=== PATIENT | female | born 1955 | race Caucasian/White ===

== ENCOUNTER 2020-08-10 06:14 | Inpatient (IN) ==
[2020-08-10] MEDS ORDERED: diphenhydrAMINE CAP 25 MG CAPSULE PO ONE (06:48)
[2020-08-10] MEDS ORDERED: DIAZEPAM 5 MG TABLET PO ONE (06:48)
[2020-08-10] MEDS ORDERED: LIDOCAINE 1% 20 ML VIAL ONE (06:52)
[2020-08-10] MEDS ORDERED: HEPARIN/NACL 0.9% 2 UNITS/ML 1,000 ML IV ONE (06:52)
[2020-08-10] MEDS ORDERED: DIAZEPAM 5 MG TABLET ONE (07:01)
[2020-08-10] MEDS ORDERED: diphenhydrAMINE CAP 25 MG CAPSULE ONE (07:01)
[2020-08-10] MEDS: SODIUM CHLORIDE 0.9% 1,000 ML IV SCH ×2 (07:03→15:35)
[2020-08-10] MEDS ORDERED: fentaNYL 100 MCG/2 ML VIAL ONE (07:15)
[2020-08-10] MEDS ORDERED: MIDAZOLAM 2 MG/2 ML VIAL ONE (07:15)
[2020-08-10 07:27] LABS: Calcium 9.5 MG/DL (8.5-10.1); Osmolality,Calculated 280.5 MOS/KG (273-304)
[2020-08-10] MEDS ORDERED: NITROGLYCERIN DRIP 50 MG/250 ML BOTTLE IV ONE (07:33)
[2020-08-10 07:43] LABS: Basophils # 0.1 10*3/uL (0.0-0.2); Basophils % 1.2 % (0.0-0.8); Eosinophils # 0.3 10*3/uL (0.0-0.87); Eosinophils % 4.8 % (0.00-10.9); Hematocrit 36.5 VOL% (35.7-47.0); Hemoglobin 12.2 GM/DL (12.0-16.0); Immature Granulocytes % 0.6 %; Immature Granulocytes Absolute 0.04 #; Lymphocytes # 2.1 10*3/uL (1.4-4.0); Lymphocytes % 30.7 % (21.3-54.2); Mean Corpuscular HGB Conc 33.4 GM/DL (32-36); Mean Corpuscular Volume 80.6 FL (87-102); Mean Platelet Volume 10.6 FL (9.6-12.0); Monocytes % 11.7 % (1.7-12.7); Platelet Count 263 T/CUMM (130-400); Red Blood Count 4.53 MC/CUMM (3.8-5.5); White Blood Count 6.7 T/CUMM (4-12)
[2020-08-10] MEDS ORDERED: NITROGLYCERIN SL 0.4 MG TABLET SL PRN (08:00)
[2020-08-10] MEDS ORDERED: ACETAMINOPHEN 325 MG TABLET PO PRN (08:00)
[2020-08-10] MEDS ORDERED: DEXTROSE 50% 25 GM/50 ML VIAL IV PRN ×2 (08:00→09:27)
[2020-08-10] MEDS ORDERED: ZALEPLON 5 MG CAPSULE PO PRN (08:00)
[2020-08-10] MEDS ORDERED: GLUCAGON 1 MG VIAL IM PRN ×2 (08:00→09:27)
[2020-08-10] MEDS ORDERED: ONDANSETRON 4 MG/2 ML VIAL IV PRN (08:00)
[2020-08-10] MEDS ORDERED: hydrALAZINE 20 MG/1 ML VIAL IV PRN (08:05)
[2020-08-10] MEDS: CITALOPRAM 20 MG TABLET PO SCH (09:34)
[2020-08-10] MEDS: ROSUVASTATIN 20 MG TABLET PO SCH (09:35)
[2020-08-10] MEDS: CHLORTHALIDONE 25 MG TABLET PO SCH (09:35)
[2020-08-10] MEDS: ISOSORBIDE MONONITRATE 60 MG TABLET PO SCH (09:35)
[2020-08-10] MEDS: FAMOTIDINE 20 MG TABLET PO SCH ×2 (09:36→21:57)
[2020-08-10] MEDS: gemfibroziL 600 MG TABLET PO SCH ×2 (09:36→21:56)
[2020-08-10] MEDS: EZETIMIBE 10 MG TABLET PO SCH (09:37)
[2020-08-10] MEDS: METOPROLOL SUCCINATE XL 50 MG TABLET PO SCH (09:37)
[2020-08-10] MEDS: INSULIN REGULAR 100 UNIT/ML SUBCUT SCH ×3 (12:30→22:18)
[2020-08-10] MEDS ORDERED: ACARBOSE 50 MG PO SCH (17:00)
[2020-08-10] MEDS: amLODIPine 10 MG TABLET PO SCH (21:56)
[2020-08-10] MEDS: ASPIRIN EC 81 MG TABLET PO SCH (21:57)
[2020-08-11] MEDS: SODIUM CHLORIDE 0.9% 1,000 ML IV SCH ×4 (00:30→22:23)
[2020-08-11 06:03] LABS: Basophils # 0.1 10*3/uL (0.0-0.2); Basophils % 1.1 % (0.0-0.8); Eosinophils # 0.4 10*3/uL (0.0-0.87); Eosinophils % 5.4 % (0.00-10.9); Hematocrit 40.8 VOL% (35.7-47.0); Hemoglobin 13.4 GM/DL (12.0-16.0); Immature Granulocytes % 0.4 %; Immature Granulocytes Absolute 0.03 #; Lymphocytes # 2.3 10*3/uL (1.4-4.0); Lymphocytes % 31.6 % (21.3-54.2); Mean Corpuscular HGB Conc 32.8 GM/DL (32-36); Mean Corpuscular Volume 81.3 FL (87-102); Mean Platelet Volume 10.6 FL (9.6-12.0); Monocytes % 10.5 % (1.7-12.7); Platelet Count 257 T/CUMM (130-400); Red Blood Count 5.02 MC/CUMM (3.8-5.5); Red Cell Distribution Width 13.9 % (9.3-17.3); White Blood Count 7.4 T/CUMM (4-12)
[2020-08-11 06:18] LABS: Calcium 9.5 MG/DL (8.5-10.1); Osmolality,Calculated 281.5 MOS/KG (273-304)
[2020-08-11 07:28] LABS: Calcium 9.6 MG/DL (8.5-10.1); Osmolality,Calculated 281.5 MOS/KG (273-304); Risk Ratio 4.73; VLDL CHOLESTEROL 37.2 MG/DL
[2020-08-11 08:07] LABS: INR 1.1; PT Patient Result 11.7 SECS (9.8-11.9)
[2020-08-11] MEDS: INSULIN REGULAR 100 UNIT/ML SUBCUT SCH ×4 (09:27→20:57)
[2020-08-11] MEDS: FAMOTIDINE 20 MG TABLET PO SCH ×2 (09:29→20:55)
[2020-08-11] MEDS: ROSUVASTATIN 20 MG TABLET PO SCH (09:29)
[2020-08-11] MEDS: ISOSORBIDE MONONITRATE 60 MG TABLET PO SCH (09:29)
[2020-08-11] MEDS: gemfibroziL 600 MG TABLET PO SCH ×2 (09:29→20:55)
[2020-08-11] MEDS: CITALOPRAM 20 MG TABLET PO SCH (09:29)
[2020-08-11] MEDS: METOPROLOL SUCCINATE XL 50 MG TABLET PO SCH (09:29)
[2020-08-11] MEDS: CHLORTHALIDONE 25 MG TABLET PO SCH (09:30)
[2020-08-11] MEDS: EZETIMIBE 10 MG TABLET PO SCH (09:30)
[2020-08-11] MEDS: ASCORBIC ACID 500 MG TABLET PO SCH ×2 (11:33→20:55)
[2020-08-11] MEDS: ENOXAPARIN 40 MG/0.4 ML SYRINGE SUBCUT SCH (11:33)
[2020-08-11] MEDS: ASPIRIN EC 81 MG TABLET PO SCH (20:55)
[2020-08-11] MEDS: amLODIPine 10 MG TABLET PO SCH (20:55)
[2020-08-12 06:27] LABS: Basophils # 0.1 10*3/uL (0.0-0.2); Eosinophils # 0.4 10*3/uL (0.0-0.87); Eosinophils % 5.8 % (0.00-10.9); Hematocrit 37.2 VOL% (35.7-47.0); Hemoglobin 12.1 GM/DL (12.0-16.0); Immature Granulocytes % 0.9 %; Immature Granulocytes Absolute 0.06 #; Lymphocytes # 1.9 10*3/uL (1.4-4.0); Lymphocytes % 27.5 % (21.3-54.2); Mean Corpuscular HGB Conc 32.5 GM/DL (32-36); Mean Corpuscular Volume 80.9 FL (87-102); Mean Platelet Volume 10.7 FL (9.6-12.0); Monocytes % 12.1 % (1.7-12.7); Neutrophils % 52.7 % (38.7-73.9); Platelet Count 259 T/CUMM (130-400); Red Cell Distribution Width 13.6 % (9.3-17.3); White Blood Count 7.1 T/CUMM (4-12)
[2020-08-12 06:40] LABS: Calcium 9.3 MG/DL (8.5-10.1); Osmolality,Calculated 282.8 MOS/KG (273-304)
[2020-08-12] MEDS: INSULIN REGULAR 100 UNIT/ML SUBCUT SCH ×4 (09:40→21:38)
[2020-08-12] MEDS: SODIUM CHLORIDE 0.9% 1,000 ML IV SCH ×2 (09:40→16:15)
[2020-08-12] MEDS: ASCORBIC ACID 500 MG TABLET PO SCH ×2 (09:41→21:39)
[2020-08-12] MEDS: FAMOTIDINE 20 MG TABLET PO SCH ×2 (09:41→21:39)
[2020-08-12] MEDS: METOPROLOL SUCCINATE XL 50 MG TABLET PO SCH (09:41)
[2020-08-12] MEDS: gemfibroziL 600 MG TABLET PO SCH ×2 (09:41→21:39)
[2020-08-12] MEDS: ISOSORBIDE MONONITRATE 60 MG TABLET PO SCH (09:41)
[2020-08-12] MEDS: CITALOPRAM 20 MG TABLET PO SCH (09:41)
[2020-08-12] MEDS: ROSUVASTATIN 20 MG TABLET PO SCH (09:42)
[2020-08-12] MEDS: EZETIMIBE 10 MG TABLET PO SCH (09:42)
[2020-08-12] MEDS: CHLORTHALIDONE 25 MG TABLET PO SCH (09:45)
[2020-08-12] MEDS: ENOXAPARIN 40 MG/0.4 ML SYRINGE SUBCUT SCH (11:55)
[2020-08-12] MEDS: amLODIPine 10 MG TABLET PO SCH (21:39)
[2020-08-12] MEDS: metFORMIN 500 MG TABLET PO SCH (21:39)
[2020-08-12] MEDS: ASPIRIN EC 81 MG TABLET PO SCH (21:39)
[2020-08-13 06:11] LABS: Basophils # 0.1 10*3/uL (0.0-0.2); Basophils % 1.1 % (0.0-0.8); Eosinophils # 0.4 10*3/uL (0.0-0.87); Eosinophils % 5.2 % (0.00-10.9); Hemoglobin 13.4 GM/DL (12.0-16.0); Immature Granulocytes % 0.8 %; Immature Granulocytes Absolute 0.07 #; Lymphocytes # 2.3 10*3/uL (1.4-4.0); Lymphocytes % 27.8 % (21.3-54.2); Mean Corpuscular HGB Conc 33.5 GM/DL (32-36); Mean Platelet Volume 10.7 FL (9.6-12.0); Monocytes % 9.7 % (1.7-12.7); Neutrophils % 55.4 % (38.7-73.9); Platelet Count 266 T/CUMM (130-400); Red Cell Distribution Width 13.4 % (9.3-17.3); White Blood Count 8.2 T/CUMM (4-12)
[2020-08-13 06:30] LABS: Albumin 3.5 G/DL (3.4-5.0); Bilirubin,Total 0.8 MG/DL (0.2-1.0); Calcium 9.5 MG/DL (8.5-10.1); Osmolality,Calculated 276.1 MOS/KG (273-304); Total Protein 7.5 G/DL (6.4-8.3)
[2020-08-13] MEDS: SODIUM CHLORIDE 0.9% 1,000 ML IV SCH ×3 (07:15→14:15)
[2020-08-13] MEDS ORDERED: VANCOMYCIN 1,000 MG VIAL ONE (07:56)
[2020-08-13] MEDS ORDERED: VANCOMYCIN 500 MG VIAL ONE (07:56)
[2020-08-13] MEDS ORDERED: PAPAVERINE 60 MG/2 ML VIAL ONE (07:56)
[2020-08-13 08:29] LABS: Allen Test Positive; Pt O2 Delivery Device Room Air
[2020-08-13 08:32] LABS: ABG HCO3 25.2 MMOL/L (20-26); ABG Oxygen Saturation 94.2 % (95-100); ABG PCO2 40.8 MM HG (35-48); ABG PH 7.407 (7.35-7.45); ABG PO2 71.9 MM HG (80-95); ABG TCO2 22.5 MMOL/L (23-27)
[2020-08-13] MEDS ORDERED: SODIUM CHLORIDE 0.9% 1,000 ML IV SCH (09:30)
[2020-08-13] MEDS: INSULIN REGULAR 100 UNIT/ML SUBCUT SCH ×4 (09:41→21:02)
[2020-08-13] MEDS: EZETIMIBE 10 MG TABLET PO SCH (10:08)
[2020-08-13] MEDS: ROSUVASTATIN 20 MG TABLET PO SCH (10:12)
[2020-08-13] MEDS: metFORMIN 500 MG TABLET PO SCH ×2 (10:12→21:01)
[2020-08-13] MEDS: METOPROLOL SUCCINATE XL 50 MG TABLET PO SCH (10:13)
[2020-08-13] MEDS: CHLORTHALIDONE 25 MG TABLET PO SCH (10:15)
[2020-08-13] MEDS: gemfibroziL 600 MG TABLET PO SCH ×2 (10:17→21:01)
[2020-08-13] MEDS: CHLORHEXIDINE 4% SOLN 118 ML BOTTLE TOP SCH ×3 (10:19→21:02)
[2020-08-13] MEDS: CITALOPRAM 20 MG TABLET PO SCH (10:19)
[2020-08-13] MEDS: ISOSORBIDE MONONITRATE 60 MG TABLET PO SCH (10:19)
[2020-08-13] MEDS: FAMOTIDINE 20 MG TABLET PO SCH ×2 (10:23→21:01)
[2020-08-13] MEDS: ASCORBIC ACID 500 MG TABLET PO SCH ×2 (10:24→21:01)
[2020-08-13] MEDS: CHLORHEXIDINE 0.12% ORAL RINSE 60 ML BOTTLE SWISH/SPIT SCH ×2 (10:24→21:02)
[2020-08-13] MEDS: ASPIRIN EC 81 MG TABLET PO SCH (21:00)
[2020-08-13] MEDS: amLODIPine 10 MG TABLET PO SCH (21:01)
[2020-08-14] MEDS ORDERED: CEFUROXIME INJ 1,500 MG in SYRINGE 1 EACH IV ONE (05:00)
[2020-08-14] MEDS ORDERED: FAMOTIDINE 20 MG TABLET PO ONE (05:30)
[2020-08-14] MEDS ORDERED: DIAZEPAM 5 MG TABLET PO ONE (05:30)
[2020-08-14] MEDS: METOPROLOL SUCCINATE XL 50 MG TABLET PO SCH ×2 (05:42→08:28)
[2020-08-14] MEDS: SODIUM CHLORIDE 0.9% 1,000 ML IV SCH ×2 (05:55→07:38)
[2020-08-14 07:34] LABS: ABG HCO3 23.6 MMOL/L (20-26); ABG Oxygen Saturation 99.5 % (95-100); ABG PCO2 38.3 MM HG (35-48); ABG PH 7.397 (7.35-7.45); ABG TCO2 20.7 MMOL/L (23-27); Glucose Heart Surgery 160 MG/DL (74-106); Hematocrit Heart Surgery 38.2 PERCENT (37-47); Hemoglobin Heart Surgery 12.4 G/DL (12.0-16.0); Ionized Calcium Arterial 1.27 MMOL/L (1.21-1.46); PCO2 Patient Temp Arterial 38.3 MMHG; PH Patient Temp Arterial 7.397; Patient Temperature 37 CELCIUS; Potassium Heart/CVR 4.2 MMOL/L (3.5-5.1); Sodium Heart/CVR 137 MMOL/L (135-145)
[2020-08-14] MEDS: INSULIN REGULAR 100 UNIT/ML SUBCUT SCH (07:38)
[2020-08-14] MEDS ORDERED: PHENYLEPHRINE DRIP 40 MG/250 ML PREMIX IV ONE (07:40)
[2020-08-14] MEDS ORDERED: SODIUM BICARBONATE 50 MEQ/50 ML VIAL IV ONE ×2 (07:40→10:39)
[2020-08-14] MEDS ORDERED: POTASSIUM CHLORIDE RIDER 100 ML IV ONE (07:40)
[2020-08-14] MEDS ORDERED: NITROPRUSSIDE 50 MG/2 ML VIAL ONE (07:40)
[2020-08-14] MEDS ORDERED: CALCIUM CHLORIDE 1,000 MG/10 ML SYRINGE IV ONE (07:41)
[2020-08-14] MEDS ORDERED: EPINEPHrine 1 MG/10 ML SYRINGE ONE (07:41)
[2020-08-14 08:01] LABS: Bacteria,Urine Moderate /HPF (Few); Bilirubin,Urine Negative (Negative); Blood, Urine Negative (Negative); Glucose,Urine (UA) Negative (Negative); Ketones,Urine Negative (Negative); Nitrite,Urine Negative (Negative); Protein,Urine Negative; RBC,Urine 1 /HPF (0-4); Squamous Epithelial Cell,Urine Occasional /HPF (0-10); Urine Appearance CLEAR (Clear); Urine Color Yellow (Yellow); Urine Specific Gravity 1.012 (1.001-1.035); Urine Urobilinogen < 2.0 EU/DL (0.2-1.0); WBC,Urine 2 /HPF (0-6)
[2020-08-14] MEDS: FAMOTIDINE 20 MG TABLET PO SCH (08:28)
[2020-08-14] MEDS: CITALOPRAM 20 MG TABLET PO SCH (08:28)
[2020-08-14] MEDS: ISOSORBIDE MONONITRATE 60 MG TABLET PO SCH (08:28)
[2020-08-14] MEDS: CHLORTHALIDONE 25 MG TABLET PO SCH (08:28)
[2020-08-14] MEDS: metFORMIN 500 MG TABLET PO SCH (08:28)
[2020-08-14] MEDS: gemfibroziL 600 MG TABLET PO SCH (08:28)
[2020-08-14] MEDS: ROSUVASTATIN 20 MG TABLET PO SCH (08:28)
[2020-08-14] MEDS: CHLORHEXIDINE 0.12% ORAL RINSE 60 ML BOTTLE SWISH/SPIT SCH ×2 (08:28→21:04)
[2020-08-14] MEDS: ASCORBIC ACID 500 MG TABLET PO SCH (08:29)
[2020-08-14] MEDS: EZETIMIBE 10 MG TABLET PO SCH (08:29)
[2020-08-14 09:19] LABS: Hematocrit Heart Surgery 25.1 PERCENT (37-47); Hemoglobin Heart Surgery 8.1 G/DL (12.0-16.0); PCO2 Patient Temp Venous 35.3 MM HG; PH Patient Temp Venous 7.453; PO2 Patient Temp Venous 34.8 MM HG; Potassium Heart/CVR 5.2 MMOL/L (3.5-5.1); VBG PCO2 38.8 MMHG (41-51); VBG PH 7.423
[2020-08-14 10:00] LABS: Hematocrit Heart Surgery 28.5 PERCENT (37-47); Hemoglobin Heart Surgery 9.2 G/DL (12.0-16.0); PCO2 Patient Temp Venous 33.2 MM HG; PH Patient Temp Venous 7.457; PO2 Patient Temp Venous 34.9 MM HG; Potassium Heart/CVR 4.4 MMOL/L (3.5-5.1); VBG Base Excess 0.1 MEQ/L (0-4); VBG HCO3 24.2 MEQ/L (24-28); VBG Oxygen Saturation 77.8 %; VBG PCO2 38.4 MMHG (41-51); VBG PH 7.413
[2020-08-14] MEDS ORDERED: THROMBIN TOPICAL (RECOMBINANT) 5,000 UNIT VIAL TOP ONE (10:27)
[2020-08-14] MEDS ORDERED: MAGNESIUM SULFATE 5 GM/10 ML VIAL IV ONE (10:39)
[2020-08-14] MEDS ORDERED: PROTAMINE SULFATE 250 MG/25 ML VIAL IV ONE (10:39)
[2020-08-14] MEDS ORDERED: HEPARIN 10,000 UNIT/10 ML VIAL ONE (10:39)
[2020-08-14] MEDS ORDERED: ALBUMIN 25% 25 GM/100 ML VIAL IV ONE (10:39)
[2020-08-14] MEDS ORDERED: LIDOCAINE 2% 5 ML VIAL ONE ×2 (10:39→11:56)
[2020-08-14] MEDS ORDERED: MANNITOL 100 GM/500 ML BAG IV ONE (10:39)
[2020-08-14] MEDS ORDERED: DEXTROSE 5% KCL 20 MEQ 20 MEQ/1,000 ML BAG IV ONE (10:39)
[2020-08-14] MEDS ORDERED: FUROSEMIDE 20 MG/2 ML VIAL ONE ×2 (10:40→10:44)
[2020-08-14] MEDS ORDERED: PROTAMINE SULFATE 50 MG/5 ML VIAL IV ONE (10:40)
[2020-08-14] MEDS ORDERED: methylPREDNISolone SOD SUC 1,000 MG/8 ML VIAL ONE (10:40)
[2020-08-14 10:57] LABS: ABG Base Excess -1.6 MMOL/L (-2.5-2.5); ABG HCO3 22.8 MMOL/L (20-26); ABG PCO2 44.3 MM HG (35-48); ABG PH 7.344 (7.35-7.45); ABG PO2 51.7 MM HG (80-95); ABG TCO2 22.3 MMOL/L (23-27); Glucose Heart Surgery 276 MG/DL (74-106); Hematocrit Heart Surgery 29.2 PERCENT (37-47); Hemoglobin Heart Surgery 9.4 G/DL (12.0-16.0); Ionized Calcium Arterial 1.18 MMOL/L (1.21-1.46); PCO2 Patient Temp Arterial 44.3 MMHG; PH Patient Temp Arterial 7.344; PO2 Patient Temp Arterial 51.7 MM HG; Patient Temperature 37 CELCIUS; Potassium Heart/CVR 4.2 MMOL/L (3.5-5.1); Sodium Heart/CVR 133 MMOL/L (135-145)
[2020-08-14 11:07] LABS: ABG Base Excess -1.8 MMOL/L (-2.5-2.5); ABG HCO3 22.9 MMOL/L (20-26); ABG PCO2 37.8 MM HG (35-48); ABG PH 7.389 (7.35-7.45); Glucose Heart Surgery 261 MG/DL (74-106); Hematocrit Heart Surgery 28.9 PERCENT (37-47); Hemoglobin Heart Surgery 9.3 G/DL (12.0-16.0); Ionized Calcium Arterial 1.27 MMOL/L (1.21-1.46); PCO2 Patient Temp Arterial 37.8 MMHG; PH Patient Temp Arterial 7.389; Patient Temperature 37 CELCIUS; Potassium Heart/CVR 3.8 MMOL/L (3.5-5.1); Sodium Heart/CVR 134 MMOL/L (135-145)
[2020-08-14] MEDS ORDERED: MAGNESIUM SULF RIDER 4 GM in PREMIX 1 EACH IV PRN (11:24)
[2020-08-14] MEDS ORDERED: ALBUMIN 5% 12.5 GM in PREMIX 1 EACH IV PRN (11:24)
[2020-08-14] MEDS ORDERED: MORPHINE 10 MG/1 ML VIAL IV PRN (11:24)
[2020-08-14] MEDS ORDERED: CHLORHEXIDINE 4% SOLN 118 ML BOTTLE TOP PRN (11:24)
[2020-08-14] MEDS ORDERED: MORPHINE 4 MG/1 ML VIAL IV PRN (11:24)
[2020-08-14] MEDS ORDERED: MAGNESIUM SULF RIDER 2 GM in PREMIX 1 EACH IV PRN (11:24)
[2020-08-14] MEDS ORDERED: ACETAMINOPHEN 650 MG SUPP RECTAL PRN (11:24)
[2020-08-14] MEDS ORDERED: NITROPRUSSIDE 100 MG in DEXTROSE 5% 250 ML IV PRN (11:24)
[2020-08-14] MEDS ORDERED: POTASSIUM CHLORIDE RIDER 10 MEQ in PREMIX 1 EACH IV PRN (11:24)
[2020-08-14] MEDS ORDERED: MIDAZOLAM 10 MG/2 ML VIAL IV PRN (11:24)
[2020-08-14] MEDS ORDERED: ONDANSETRON 4 MG/2 ML VIAL IV PRN (11:24)
[2020-08-14] MEDS ORDERED: PHENYLEPHRINE DRIP 40 MG/250 ML PREMIX IV PRN (11:24)
[2020-08-14] MEDS ORDERED: CALCIUM CHLORIDE 1,000 MG/10 ML SYRINGE IV PRN (11:24)
[2020-08-14] MEDS ORDERED: VECURONIUM 10 MG VIAL IV PRN ×2 (11:24)
[2020-08-14] MEDS ORDERED: DEXTROSE 50% 25 GM/50 ML VIAL IV PRN ×2 (11:24)
[2020-08-14] MEDS ORDERED: MIDAZOLAM 2 MG/2 ML VIAL IV PRN (11:24)
[2020-08-14] MEDS ORDERED: LACTATED RINGERS 250 ML IV PRN (11:24)
[2020-08-14] MEDS ORDERED: INSULIN REGULAR 100 UNIT/ML IV ONE (11:24)
[2020-08-14] MEDS ORDERED: SODIUM CHLORIDE 0.45% 1,000 ML IV SCH ×2 (11:30)
[2020-08-14] MEDS ORDERED: PHENYLEPHRINE DRIP 20 MG/250 ML PREMIX IV ONE (11:56)
[2020-08-14] MEDS ORDERED: SUFentanil 250 MCG/5 ML AMP ONE (11:56)
[2020-08-14] MEDS ORDERED: SEVOFLURANE 1 UNIT/15 MINUTE INH ONE (11:56)
[2020-08-14] MEDS ORDERED: CALCIUM CHLORIDE 1,000 MG/10 ML VIAL IV ONE (11:56)
[2020-08-14] MEDS ORDERED: HEPARIN/NACL 0.9% 2 UNITS/ML 500 ML IV ONE (11:56)
[2020-08-14] MEDS ORDERED: MIDAZOLAM 10 MG/2 ML VIAL ONE ×2 (11:57)
[2020-08-14] MEDS ORDERED: ETOMIDATE 40 MG/20 ML VIAL IV ONE (11:57)
[2020-08-14] MEDS ORDERED: NITROGLYCERIN DRIP 50 MG/250 ML BOTTLE IV ONE (11:57)
[2020-08-14] MEDS ORDERED: VECURONIUM 10 MG VIAL IV ONE (11:57)
[2020-08-14] MEDS ORDERED: LACTATED RINGERS 1,000 ML IV ONE (11:58)
[2020-08-14] MEDS ORDERED: SODIUM CHLORIDE 0.9% 250 ML IV ONE (11:58)
[2020-08-14] MEDS ORDERED: SODIUM CHLORIDE 0.9% 100 ML IV ONE (11:58)
[2020-08-14] MEDS ORDERED: SODIUM CHLORIDE 0.9% 1,000 ML IV ONE (11:58)
[2020-08-14] MEDS ORDERED: AMINOCAPROIC ACID 5,000 MG/20 ML VIAL ONE (11:58)
[2020-08-14 12:23] LABS: ABG Base Excess -1.7 MMOL/L (-2.5-2.5); ABG PCO2 33.5 MM HG (35-48); ABG PH 7.428 (7.35-7.45); ABG PO2 92.1 MM HG (80-95); ABG TCO2 20.5 MMOL/L (23-27); Glucose Heart Surgery 233 MG/DL (74-106); Hematocrit Heart Surgery 26.2 PERCENT (37-47); Hemoglobin Heart Surgery 8.4 G/DL (12.0-16.0); Potassium Heart/CVR 3.4 MMOL/L (3.5-5.1)
[2020-08-14 12:24] LABS: Basophils % 0.4 % (0.0-0.8); Eosinophils # 0.1 10*3/uL (0.0-0.87); Eosinophils % 1.1 % (0.00-10.9); Hematocrit 24.9 VOL% (35.7-47.0); Hemoglobin 8.4 GM/DL (12.0-16.0); Immature Granulocytes % 0.9 %; Immature Granulocytes Absolute 0.09 #; Lymphocytes # 1.5 10*3/uL (1.4-4.0); Lymphocytes % 15.1 % (21.3-54.2); Mean Corpuscular HGB Conc 33.7 GM/DL (32-36); Mean Corpuscular Volume 79.3 FL (87-102); Mean Platelet Volume 10.4 FL (9.6-12.0); Monocytes % 8.4 % (1.7-12.7); Neutrophils % 74.1 % (38.7-73.9); Platelet Count 231 T/CUMM (130-400); Red Blood Count 3.14 MC/CUMM (3.8-5.5); Red Cell Distribution Width 13.5 % (9.3-17.3); White Blood Count 10.2 T/CUMM (4-12)
[2020-08-14] MEDS: POTASSIUM CHLORIDE RIDER 20 MEQ in PREMIX 1 EACH IV PRN ×5 (12:26→23:11)
[2020-08-14 12:42] LABS: Albumin 3.6 G/DL (3.4-5.0); Bilirubin,Total 1.2 MG/DL (0.2-1.0); Calcium 9.7 MG/DL (8.5-10.1); Osmolality,Calculated 280.1 MOS/KG (273-304); Total Protein 6.4 G/DL (6.4-8.3)
[2020-08-14 12:47] LABS: INR 1.2; PT Patient Result 12.7 SECS (9.8-11.9); Partial Thromboplastin Time 30.5 SECS (23.9-33.8)
[2020-08-14 12:49] LABS: CKMB % 5.3 %
[2020-08-14] MEDS: INSULIN REGULAR DRIP 100 ML IV SCH ×2 (12:50→23:13)
[2020-08-14 12:54] LABS: Troponin I 3.33 NG/ML (0.00-0.045)
[2020-08-14 13:18] LABS: ABG Base Excess -0.6 MMOL/L (-2.5-2.5); ABG HCO3 23.9 MMOL/L (20-26); ABG Oxygen Saturation 99.4 % (95-100); ABG PCO2 35.1 MM HG (35-48); ABG TCO2 21.2 MMOL/L (23-27); Glucose Heart Surgery 241 MG/DL (74-106); Hematocrit Heart Surgery 30.3 PERCENT (37-47); Hemoglobin Heart Surgery 9.8 G/DL (12.0-16.0)
[2020-08-14 16:03] LABS: ABG Base Excess 1.2 MMOL/L (-2.5-2.5); ABG HCO3 25.5 MMOL/L (20-26); ABG Oxygen Saturation 97.2 % (95-100); ABG PCO2 39.5 MM HG (35-48); ABG PH 7.421 (7.35-7.45); ABG PO2 89.2 MM HG (80-95); ABG TCO2 23.3 MMOL/L (23-27); Glucose Heart Surgery 197 MG/DL (74-106); Hematocrit Heart Surgery 31.4 PERCENT (37-47); Hemoglobin Heart Surgery 10.2 G/DL (12.0-16.0); Potassium Heart/CVR 3.3 MMOL/L (3.5-5.1)
[2020-08-14 18:20] LABS: ABG Base Excess 0.2 MMOL/L (-2.5-2.5); ABG HCO3 24.6 MMOL/L (20-26); ABG Oxygen Saturation 97.5 % (95-100); ABG PCO2 40.1 MM HG (35-48); ABG PH 7.402 (7.35-7.45); ABG PO2 92.5 MM HG (80-95); ABG TCO2 22.7 MMOL/L (23-27); Glucose Heart Surgery 172 MG/DL (74-106); Hematocrit Heart Surgery 30.3 PERCENT (37-47); Hemoglobin Heart Surgery 9.8 G/DL (12.0-16.0); Potassium Heart/CVR 3.9 MMOL/L (3.5-5.1)
[2020-08-14] MEDS: CEFUROXIME INJ 1,500 MG in SYRINGE 1 EACH IV SCH ×2 (18:21→18:31)
[2020-08-14] MEDS: KETOROLAC 30 MG/1 ML VIAL IV SCH (18:26)
[2020-08-14] MEDS: INSULIN REGULAR 100 UNIT/ML IV PRN ×2 (19:12→21:00)
[2020-08-14 20:17] LABS: CKMB % 4.9 %
[2020-08-14 20:28] LABS: Troponin I 13.3 NG/ML (0.00-0.045)
[2020-08-14 22:05] LABS: ABG Base Excess 0.7 MMOL/L (-2.5-2.5); ABG HCO3 25.1 MMOL/L (20-26); ABG PCO2 38.3 MM HG (35-48); ABG PH 7.423 (7.35-7.45); ABG TCO2 22.9 MMOL/L (23-27); Glucose Heart Surgery 128 MG/DL (74-106); Hematocrit Heart Surgery 29.6 PERCENT (37-47); Hemoglobin Heart Surgery 9.6 G/DL (12.0-16.0); Potassium Heart/CVR 3.4 MMOL/L (3.5-5.1)
[2020-08-14] MEDS ORDERED: FUROSEMIDE 40 MG/4 ML VIAL IV ONE (22:56)
[2020-08-15 00:12] LABS: ABG Base Excess 1.5 MMOL/L (-2.5-2.5); ABG HCO3 25.7 MMOL/L (20-26); ABG Oxygen Saturation 97.2 % (95-100); ABG PCO2 39.3 MM HG (35-48); ABG PH 7.425 (7.35-7.45); ABG PO2 87.4 MM HG (80-95); ABG TCO2 23.4 MMOL/L (23-27); Glucose Heart Surgery 118 MG/DL (74-106); Hematocrit Heart Surgery 31.7 PERCENT (37-47); Hemoglobin Heart Surgery 10.2 G/DL (12.0-16.0); Potassium Heart/CVR 3.8 MMOL/L (3.5-5.1)
[2020-08-15] MEDS: KETOROLAC 30 MG/1 ML VIAL IV SCH (00:17)
[2020-08-15] MEDS: POTASSIUM CHLORIDE RIDER 20 MEQ in PREMIX 1 EACH IV PRN ×4 (00:33→05:39)
[2020-08-15 01:05] LABS: ABG Base Excess 0.4 MMOL/L (-2.5-2.5); ABG HCO3 25.9 MMOL/L (20-26); ABG Oxygen Saturation 94.8 % (95-100); ABG PCO2 45.6 MM HG (35-48); ABG PH 7.373 (7.35-7.45); ABG PO2 80.9 MM HG (80-95); ABG TCO2 27.3 MMOL/L (23-27); Glucose Heart Surgery 112 MG/DL (74-106); Hemoglobin Heart Surgery 10.7 G/DL (12.0-16.0); Potassium Heart/CVR 3.9 MMOL/L (3.5-5.1)
[2020-08-15 04:12] LABS: ABG Base Excess -0.5 MMOL/L (-2.5-2.5); ABG Oxygen Saturation 92.1 % (95-100); ABG PCO2 44.8 MM HG (35-48); ABG PH 7.365 (7.35-7.45); ABG TCO2 26.4 MMOL/L (23-27); Glucose Heart Surgery 118 MG/DL (74-106); Hemoglobin Heart Surgery 10.5 G/DL (12.0-16.0); Potassium Heart/CVR 4.2 MMOL/L (3.5-5.1)
[2020-08-15 04:15] LABS: Basophils % 0.1 % (0.0-0.8); Eosinophils % 0.1 % (0.00-10.9); Hematocrit 29.5 VOL% (35.7-47.0); Hemoglobin 9.9 GM/DL (12.0-16.0); Immature Granulocytes % 0.7 %; Immature Granulocytes Absolute 0.13 #; Lymphocytes # 1.5 10*3/uL (1.4-4.0); Lymphocytes % 8.1 % (21.3-54.2); Mean Corpuscular HGB Conc 33.6 GM/DL (32-36); Mean Corpuscular Volume 81.3 FL (87-102); Mean Platelet Volume 10.6 FL (9.6-12.0); Monocytes % 6.2 % (1.7-12.7); Neutrophils % 84.8 % (38.7-73.9); Platelet Count 264 T/CUMM (130-400); Red Blood Count 3.63 MC/CUMM (3.8-5.5); Red Cell Distribution Width 14.5 % (9.3-17.3); White Blood Count 18.5 T/CUMM (4-12)
[2020-08-15 04:53] LABS: CKMB % 5.3 %
[2020-08-15 04:56] LABS: Troponin I 34.6 NG/ML (0.00-0.045)
[2020-08-15 05:18] LABS: Bilirubin,Direct 0.25 MG/DL (0.0-0.20); Bilirubin,Total 1.1 MG/DL (0.2-1.0); Calcium 9.3 MG/DL (8.5-10.1); Osmolality,Calculated 283.5 MOS/KG (273-304); Total Protein 7.4 G/DL (6.4-8.3)
[2020-08-15] MEDS: CEFUROXIME INJ 1,500 MG in SYRINGE 1 EACH IV SCH ×2 (05:39→18:30)
[2020-08-15 07:42] LABS: ABG HCO3 25.3 MMOL/L (20-26); ABG Oxygen Saturation 92.6 % (95-100); ABG PCO2 43.8 MM HG (35-48); ABG PH 7.379 (7.35-7.45); ABG PO2 70.2 MM HG (80-95); ABG TCO2 26.6 MMOL/L (23-27); Glucose Heart Surgery 111 MG/DL (74-106); Potassium Heart/CVR 4.2 MMOL/L (3.5-5.1)
[2020-08-15] MEDS ORDERED: GLUCAGON 1 MG VIAL IM PRN (10:34)
[2020-08-15] MEDS ORDERED: MAGNESIUM SULF RIDER 2 GM in PREMIX 1 EACH IV PRN (10:34)
[2020-08-15] MEDS ORDERED: ACETAMINOPHEN 325 MG TABLET PO PRN (10:34)
[2020-08-15] MEDS ORDERED: ONDANSETRON 4 MG/2 ML VIAL IV PRN (10:34)
[2020-08-15] MEDS ORDERED: KETOROLAC 15 MG/1 ML VIAL IV PRN (10:34)
[2020-08-15] MEDS ORDERED: MAGNESIUM HYDROXIDE SUSP 30 ML UDCUP PO PRN (10:34)
[2020-08-15] MEDS ORDERED: MAGNESIUM SULF RIDER 4 GM in PREMIX 1 EACH IV PRN (10:34)
[2020-08-15] MEDS ORDERED: DEXTROSE 50% 25 GM/50 ML VIAL IV PRN (10:34)
[2020-08-15] MEDS ORDERED: ZALEPLON 5 MG CAPSULE PO PRN (10:34)
[2020-08-15] MEDS ORDERED: ALUMINUM/MAGNES/SIMETH MAX STR 30 ML UDCUP PO PRN (10:34)
[2020-08-15] MEDS ORDERED: SODIUM CHLOR 0.45% KCL 20 MEQ 20 MEQ/1,000 ML BAG IV SCH (11:00)
[2020-08-15] MEDS: ASPIRIN EC 325 MG TABLET PO SCH (11:15)
[2020-08-15 12:39] LABS: CKMB % 5.1 %
[2020-08-15 12:40] LABS: Troponin I 28.3 NG/ML (0.00-0.045)
[2020-08-15] MEDS ORDERED: FUROSEMIDE 40 MG/4 ML VIAL IV ONE (15:47)
[2020-08-15] MEDS ORDERED: INSULIN REGULAR 100 UNIT/ML SUBCUT SCH (16:00)
[2020-08-15] MEDS: CHLORHEXIDINE 0.12% ORAL RINSE 60 ML BOTTLE SWISH/SPIT SCH ×2 (16:54→20:35)
[2020-08-15] MEDS: ROSUVASTATIN 20 MG TABLET PO SCH (20:33)
[2020-08-15] MEDS: INSULIN REGULAR 100 UNIT/ML SUBCUT SCH (20:34)
[2020-08-15] MEDS: ASCORBIC ACID 500 MG TABLET PO SCH (20:34)
[2020-08-15] MEDS: KETOROLAC 30 MG/1 ML VIAL IV PRN (21:08)
[2020-08-16] MEDS: INSULIN REGULAR 100 UNIT/ML SUBCUT SCH ×6 (00:08→20:37)
[2020-08-16 04:52] LABS: Basophils % 0.1 % (0.0-0.8); Eosinophils % 0.1 % (0.00-10.9); Hematocrit 26.7 VOL% (35.7-47.0); Hemoglobin 8.9 GM/DL (12.0-16.0); Immature Granulocytes % 0.8 %; Immature Granulocytes Absolute 0.12 #; Lymphocytes % 13.9 % (21.3-54.2); Mean Corpuscular HGB Conc 33.3 GM/DL (32-36); Mean Corpuscular Volume 83.2 FL (87-102); Mean Platelet Volume 10.5 FL (9.6-12.0); Monocytes % 14.4 % (1.7-12.7); Neutrophils % 70.7 % (38.7-73.9); Platelet Count 220 T/CUMM (130-400); Red Blood Count 3.21 MC/CUMM (3.8-5.5); Red Cell Distribution Width 14.6 % (9.3-17.3); White Blood Count 14.4 T/CUMM (4-12)
[2020-08-16 05:12] LABS: Albumin 3.3 G/DL (3.4-5.0); Bilirubin,Direct 0.2 MG/DL (0.0-0.20); Bilirubin,Total 0.6 MG/DL (0.2-1.0); Calcium 8.6 MG/DL (8.5-10.1); Osmolality,Calculated 286.8 MOS/KG (273-304); Total Protein 6.7 G/DL (6.4-8.3)
[2020-08-16 05:29] LABS: Albumin 3.3 G/DL (3.4-5.0); Bilirubin,Direct 0.19 MG/DL (0.0-0.20); Bilirubin,Indirect 0.5 MG/DL (0.0-1.0); Bilirubin,Total 0.7 MG/DL (0.2-1.0); Total Protein 6.6 G/DL (6.4-8.3)
[2020-08-16 05:31] LABS: Troponin I 20.3 NG/ML (0.00-0.045)
[2020-08-16] MEDS ORDERED: FUROSEMIDE 40 MG/4 ML VIAL IV ONE ×2 (06:00→17:00)
[2020-08-16] MEDS: POTASSIUM CHLORIDE 20 MEQ TABLET PO PRN ×2 (06:07→08:42)
[2020-08-16] MEDS ORDERED: AMIODARONE INJ 150 MG in DEXTROSE 5% 100 ML IV ONE (06:38)
[2020-08-16] MEDS ORDERED: AMIODARONE 150 MG/3 ML VIAL ONE (06:41)
[2020-08-16] MEDS ORDERED: ALBUTEROL/IPRATROPIUM 3 ML NEB RESP TX SCH (07:00)
[2020-08-16] MEDS ORDERED: AMIODARONE INJ 450 MG in DEXTROSE 5% 241 ML IV SCH ×2 (07:00→13:00)
[2020-08-16] MEDS: EZETIMIBE 10 MG TABLET PO SCH (08:41)
[2020-08-16] MEDS: FERROUS SULFATE 325 MG TABLET PO SCH (08:42)
[2020-08-16] MEDS: DOCUSATE SODIUM 100 MG CAPSULE PO SCH (08:42)
[2020-08-16] MEDS: ASPIRIN EC 325 MG TABLET PO SCH (08:42)
[2020-08-16] MEDS: PANTOPRAZOLE 40 MG TABLET PO SCH (08:42)
[2020-08-16] MEDS: CITALOPRAM 40 MG TABLET PO SCH (08:42)
[2020-08-16] MEDS: ASCORBIC ACID 500 MG TABLET PO SCH ×2 (08:42→20:35)
[2020-08-16] MEDS: KETOROLAC 30 MG/1 ML VIAL IV PRN (09:10)
[2020-08-16] MEDS: CHLORHEXIDINE 0.12% ORAL RINSE 60 ML BOTTLE SWISH/SPIT SCH ×2 (09:10→20:47)
[2020-08-16] MEDS ORDERED: LEVALBUTEROL 1.25 MG/3 ML NEB RESP TX PRN (10:07)
[2020-08-16 10:23] LABS: ABG Oxygen Saturation 92.1 % (95-100); ABG PH 7.442 (7.35-7.45); ABG PO2 64.3 MM HG (80-95); Glucose Heart Surgery 189 MG/DL (74-106); Hemoglobin Heart Surgery 9.4 G/DL (12.0-16.0); Potassium Heart/CVR 3.8 MMOL/L (3.5-5.1)
[2020-08-16] MEDS ORDERED: SODIUM CHLORIDE 0.9% 1,000 ML IV PRN (11:14)
[2020-08-16] MEDS: LEVALBUTEROL 1.25 MG/3 ML NEB RESP TX SCH ×3 (12:39→19:19)
[2020-08-16] MEDS ORDERED: AMIODARONE INJ 100 MG in DEXTROSE 5% 100 ML IV ONE (20:06)
[2020-08-16] MEDS: ROSUVASTATIN 20 MG TABLET PO SCH (20:34)
[2020-08-16] MEDS: METOPROLOL TARTRATE 25 MG TABLET PO SCH (20:34)
[2020-08-16] MEDS: dilTIAZem Drip 125 MG/125 ML PREMIX IV SCH (20:39)
[2020-08-17] MEDS: LEVALBUTEROL 1.25 MG/3 ML NEB RESP TX SCH ×7 (00:15→23:39)
[2020-08-17] MEDS: INSULIN REGULAR 100 UNIT/ML SUBCUT SCH ×7 (00:35→23:46)
[2020-08-17 04:29] LABS: Basophils # 0.1 10*3/uL (0.0-0.2); Basophils % 0.4 % (0.0-0.8); Eosinophils # 0.3 10*3/uL (0.0-0.87); Eosinophils % 2.5 % (0.00-10.9); Hematocrit 29.6 VOL% (35.7-47.0); Hemoglobin 9.7 GM/DL (12.0-16.0); Immature Granulocytes % 0.8 %; Lymphocytes # 2.4 10*3/uL (1.4-4.0); Lymphocytes % 19.1 % (21.3-54.2); Mean Corpuscular HGB Conc 32.8 GM/DL (32-36); Mean Corpuscular Volume 83.6 FL (87-102); Mean Platelet Volume 11.3 FL (9.6-12.0); Monocytes % 13.6 % (1.7-12.7); Neutrophils % 63.6 % (38.7-73.9); Platelet Count 217 T/CUMM (130-400); Red Blood Count 3.54 MC/CUMM (3.8-5.5); Red Cell Distribution Width 14.5 % (9.3-17.3); White Blood Count 12.7 T/CUMM (4-12)
[2020-08-17] MEDS: AMIODARONE INJ 450 MG in DEXTROSE 5% 241 ML IV SCH ×4 (04:32→23:42)
[2020-08-17 04:51] LABS: Bilirubin,Direct 0.44 MG/DL (0.0-0.20); Bilirubin,Total 1.1 MG/DL (0.2-1.0); Calcium 8.5 MG/DL (8.5-10.1); Total Protein 6.7 G/DL (6.4-8.3)
[2020-08-17 04:54] LABS: Albumin 3.2 G/DL (3.4-5.0); Bilirubin,Direct 0.47 MG/DL (0.0-0.20); Bilirubin,Indirect 1.1 MG/DL (0.0-1.0); Bilirubin,Total 1.6 MG/DL (0.2-1.0); CKMB % 1.3 %; Total Protein 6.3 G/DL (6.4-8.3)
[2020-08-17 04:55] LABS: Troponin I 12.3 NG/ML (0.00-0.045)
[2020-08-17] MEDS: POTASSIUM CHLORIDE 20 MEQ TABLET PO PRN ×2 (05:58→07:06)
[2020-08-17] MEDS: KETOROLAC 30 MG/1 ML VIAL IV PRN (05:59)
[2020-08-17 08:13] LABS: ABG HCO3 28.2 MMOL/L (20-26); ABG Oxygen Saturation 97.9 % (95-100); ABG PCO2 52.2 MM HG (35-48); ABG PH 7.351 (7.35-7.45); ABG PO2 126.3 MM HG (80-95); ABG TCO2 29.8 MMOL/L (23-27); Glucose Heart Surgery 172 MG/DL (74-106); Hemoglobin Heart Surgery 10.8 G/DL (12.0-16.0); Potassium Heart/CVR 3.9 MMOL/L (3.5-5.1)
[2020-08-17] MEDS ORDERED: LIDOCAINE 2% 20 ML VIAL ONE (08:50)
[2020-08-17] MEDS: ASPIRIN EC 325 MG TABLET PO SCH (09:24)
[2020-08-17] MEDS: EZETIMIBE 10 MG TABLET PO SCH (09:24)
[2020-08-17] MEDS: DOCUSATE SODIUM 100 MG CAPSULE PO SCH (09:24)
[2020-08-17] MEDS: CHLORHEXIDINE 0.12% ORAL RINSE 60 ML BOTTLE SWISH/SPIT SCH ×2 (09:24→20:46)
[2020-08-17] MEDS: METOPROLOL TARTRATE 25 MG TABLET PO SCH ×2 (09:24→20:45)
[2020-08-17] MEDS: ASCORBIC ACID 500 MG TABLET PO SCH ×2 (09:24→20:45)
[2020-08-17] MEDS: APIXABAN 5 MG TABLET PO SCH ×2 (09:24→20:45)
[2020-08-17] MEDS: PANTOPRAZOLE 40 MG TABLET PO SCH (09:24)
[2020-08-17] MEDS: FERROUS SULFATE 325 MG TABLET PO SCH (09:24)
[2020-08-17] MEDS: CITALOPRAM 40 MG TABLET PO SCH (09:24)
[2020-08-17] MEDS: methylPREDNISolone SOD SUC 40 MG/1 ML VIAL IV SCH ×2 (10:28→17:38)
[2020-08-17] MEDS: AMIODARONE 200 MG TABLET PO SCH ×2 (11:20→20:44)
[2020-08-17] MEDS: DILTIAZEM CD 120 MG CAPSULE PO SCH (11:22)
[2020-08-17] MEDS: dilTIAZem Drip 125 MG/125 ML PREMIX IV SCH (20:34)
[2020-08-17] MEDS: ROSUVASTATIN 20 MG TABLET PO SCH (20:46)
[2020-08-18] MEDS: methylPREDNISolone SOD SUC 40 MG/1 ML VIAL IV SCH ×3 (02:33→17:58)
[2020-08-18] MEDS: LEVALBUTEROL 1.25 MG/3 ML NEB RESP TX SCH ×6 (02:50→23:50)
[2020-08-18] MEDS: INSULIN REGULAR 100 UNIT/ML SUBCUT SCH ×6 (04:29→23:50)
[2020-08-18 04:40] LABS: Basophils % 0.1 % (0.0-0.8); Hematocrit 29.9 VOL% (35.7-47.0); Hemoglobin 9.9 GM/DL (12.0-16.0); Immature Granulocytes % 1.1 %; Immature Granulocytes Absolute 0.12 #; Lymphocytes % 9.2 % (21.3-54.2); Mean Corpuscular HGB Conc 33.1 GM/DL (32-36); Mean Corpuscular Volume 82.8 FL (87-102); Mean Platelet Volume 11.2 FL (9.6-12.0); Monocytes % 4.9 % (1.7-12.7); Neutrophils % 84.7 % (38.7-73.9); Platelet Count 221 T/CUMM (130-400); Red Blood Count 3.61 MC/CUMM (3.8-5.5); Red Cell Distribution Width 13.8 % (9.3-17.3); White Blood Count 10.8 T/CUMM (4-12)
[2020-08-18 05:12] LABS: Calcium 9.2 MG/DL (8.5-10.1)
[2020-08-18] MEDS: AMIODARONE INJ 450 MG in DEXTROSE 5% 241 ML IV SCH ×2 (06:19→15:53)
[2020-08-18] MEDS: POTASSIUM CHLORIDE 20 MEQ TABLET PO PRN ×2 (06:22→08:29)
[2020-08-18] MEDS: DOCUSATE SODIUM 100 MG CAPSULE PO SCH (08:29)
[2020-08-18] MEDS: AMIODARONE 200 MG TABLET PO SCH ×2 (08:29→21:11)
[2020-08-18] MEDS: PANTOPRAZOLE 40 MG TABLET PO SCH (08:29)
[2020-08-18] MEDS: EZETIMIBE 10 MG TABLET PO SCH (08:29)
[2020-08-18] MEDS: ASPIRIN EC 325 MG TABLET PO SCH (08:29)
[2020-08-18] MEDS: APIXABAN 5 MG TABLET PO SCH ×2 (08:29→21:11)
[2020-08-18] MEDS: METOPROLOL TARTRATE 25 MG TABLET PO SCH ×2 (08:29→21:15)
[2020-08-18] MEDS: FERROUS SULFATE 325 MG TABLET PO SCH (08:29)
[2020-08-18] MEDS: ASCORBIC ACID 500 MG TABLET PO SCH ×2 (08:29→21:11)
[2020-08-18] MEDS: CITALOPRAM 40 MG TABLET PO SCH (08:29)
[2020-08-18] MEDS: DILTIAZEM CD 120 MG CAPSULE PO SCH (08:30)
[2020-08-18] MEDS: CHLORHEXIDINE 0.12% ORAL RINSE 60 ML BOTTLE SWISH/SPIT SCH (09:54)
[2020-08-18] MEDS ORDERED: MAGNESIUM HYDROXIDE SUSP 30 ML UDCUP PO PRN (13:31)
[2020-08-18] MEDS ORDERED: ONDANSETRON 4 MG/2 ML VIAL IV PRN (13:31)
[2020-08-18] MEDS ORDERED: DEXTROSE 50% 25 GM/50 ML VIAL IV PRN ×2 (13:31→16:21)
[2020-08-18] MEDS ORDERED: SODIUM CHLOR 0.45% KCL 20 MEQ 20 MEQ/1,000 ML BAG IV SCH (13:31)
[2020-08-18] MEDS ORDERED: GLUCAGON 1 MG VIAL IM PRN (13:31)
[2020-08-18] MEDS ORDERED: MAGNESIUM SULF RIDER 4 GM in PREMIX 1 EACH IV PRN (13:31)
[2020-08-18] MEDS ORDERED: MAGNESIUM SULF RIDER 2 GM in PREMIX 1 EACH IV PRN (13:31)
[2020-08-18] MEDS ORDERED: ALUMINUM/MAGNES/SIMETH MAX STR 30 ML UDCUP PO PRN (13:31)
[2020-08-18] MEDS ORDERED: ZALEPLON 5 MG CAPSULE PO PRN (13:31)
[2020-08-18] MEDS ORDERED: INSULIN GLARGINE 100 UNIT/ML SUBCUT ONE (17:47)
[2020-08-18] MEDS: ROSUVASTATIN 20 MG TABLET PO SCH (21:11)
[2020-08-19] MEDS: LEVALBUTEROL 1.25 MG/3 ML NEB RESP TX SCH ×5 (03:13→18:47)
[2020-08-19] MEDS: INSULIN REGULAR 100 UNIT/ML SUBCUT SCH ×5 (04:40→22:21)
[2020-08-19 05:35] LABS: Basophils % 0.2 % (0.0-0.8); Hematocrit 30.2 VOL% (35.7-47.0); Hemoglobin 9.7 GM/DL (12.0-16.0); Immature Granulocytes % 1.5 %; Immature Granulocytes Absolute 0.23 #; Lymphocytes # 1.1 10*3/uL (1.4-4.0); Lymphocytes % 7.1 % (21.3-54.2); Mean Corpuscular HGB Conc 32.1 GM/DL (32-36); Mean Corpuscular Volume 84.4 FL (87-102); Mean Platelet Volume 11.6 FL (9.6-12.0); Monocytes % 7.8 % (1.7-12.7); Neutrophils % 83.4 % (38.7-73.9); Platelet Count 284 T/CUMM (130-400); Red Blood Count 3.58 MC/CUMM (3.8-5.5); Red Cell Distribution Width 13.8 % (9.3-17.3); White Blood Count 15.2 T/CUMM (4-12)
[2020-08-19 05:37] LABS: Alanine Aminotransferase 87 U/L (13-56); Alkaline Phosphatase 193 U/L (45-117); Aspartate Amino Transferase 58 U/L (0-37); Bilirubin,Indirect 0.6 MG/DL (0.0-1.0); Blood Urea Nitrogen 53 MG/DL (7-18); Calcium 8.7 MG/DL (8.5-10.1); Estimated Glom Filtration Rate 52 ML/MIN; Glucose 403 MG/DL (74-106); Osmolality,Calculated 298.2 MOS/KG (273-304); Total Protein 6.9 G/DL (6.4-8.3)
[2020-08-19] MEDS: EZETIMIBE 10 MG TABLET PO SCH (09:09)
[2020-08-19] MEDS: FERROUS SULFATE 325 MG TABLET PO SCH (09:09)
[2020-08-19] MEDS: AMIODARONE 200 MG TABLET PO SCH ×2 (09:09→22:08)
[2020-08-19] MEDS: CITALOPRAM 40 MG TABLET PO SCH (09:09)
[2020-08-19] MEDS: METOPROLOL TARTRATE 25 MG TABLET PO SCH ×2 (09:10→22:08)
[2020-08-19] MEDS: PANTOPRAZOLE 40 MG TABLET PO SCH (09:10)
[2020-08-19] MEDS: APIXABAN 5 MG TABLET PO SCH ×2 (09:10→22:07)
[2020-08-19] MEDS: DOCUSATE SODIUM 100 MG CAPSULE PO SCH (09:10)
[2020-08-19] MEDS: ASCORBIC ACID 500 MG TABLET PO SCH ×2 (09:10→22:07)
[2020-08-19] MEDS: DILTIAZEM CD 120 MG CAPSULE PO SCH (09:10)
[2020-08-19] MEDS: INSULIN GLARGINE 100 UNIT/ML SUBCUT SCH (09:11)
[2020-08-19] MEDS ORDERED: INSULIN REGULAR 100 UNIT/ML SUBCUT ONE (14:35)
[2020-08-19] MEDS: ROSUVASTATIN 20 MG TABLET PO SCH (22:07)
[2020-08-20] MEDS: LEVALBUTEROL 1.25 MG/3 ML NEB RESP TX SCH ×7 (00:37→18:44)
[2020-08-20 05:23] LABS: Basophils # 0.1 10*3/uL (0.0-0.2); Basophils % 0.3 % (0.0-0.8); Eosinophils # 0.3 10*3/uL (0.0-0.87); Eosinophils % 1.5 % (0.00-10.9); Immature Granulocytes % 4.4 %; Immature Granulocytes Absolute 0.75 #; Lymphocytes # 3.2 10*3/uL (1.4-4.0); Lymphocytes % 18.8 % (21.3-54.2); Mean Corpuscular HGB Conc 32.3 GM/DL (32-36); Mean Corpuscular Volume 84.9 FL (87-102); Mean Platelet Volume 10.8 FL (9.6-12.0); Monocytes % 10.7 % (1.7-12.7); NRBC # 0.02 10*3/uL; Neutrophils % 64.3 % (38.7-73.9); Platelet Count 346 T/CUMM (130-400); Red Blood Count 3.65 MC/CUMM (3.8-5.5); Red Cell Distribution Width 14.1 % (9.3-17.3); White Blood Count 17.1 T/CUMM (4-12)
[2020-08-20 05:57] LABS: Alanine Aminotransferase 79 U/L (13-56); Albumin 2.9 G/DL (3.4-5.0); Alkaline Phosphatase 193 U/L (45-117); Aspartate Amino Transferase 44 U/L (0-37); Bilirubin,Indirect 0.7 MG/DL (0.0-1.0); Blood Urea Nitrogen 43 MG/DL (7-18); Calcium 8.9 MG/DL (8.5-10.1); Estimated Glom Filtration Rate 78 ML/MIN; Glucose 123 MG/DL (74-106); Osmolality,Calculated 284.8 MOS/KG (273-304); Total Protein 6.6 G/DL (6.4-8.3)
[2020-08-20 06:15] LABS: Band Neutrophils 1 % (0-10); Eosinophils 1 % (0-10); Hypochromasia Slight; Lymphocytes 22 % (20-55); Microcytosis Slight; Nucleated Red Blood Cells 2 (0-5); Platelet Estimate Normal; Segmented Neutrophils 64 % (50-85); Total Cells Counted 100
[2020-08-20] MEDS: INSULIN REGULAR 100 UNIT/ML SUBCUT SCH ×4 (08:46→21:51)
[2020-08-20] MEDS: ASCORBIC ACID 500 MG TABLET PO SCH ×2 (09:43→21:51)
[2020-08-20] MEDS: DOCUSATE SODIUM 100 MG CAPSULE PO SCH (09:43)
[2020-08-20] MEDS: INSULIN GLARGINE 100 UNIT/ML SUBCUT SCH (09:43)
[2020-08-20] MEDS: DILTIAZEM CD 120 MG CAPSULE PO SCH (09:43)
[2020-08-20] MEDS: POTASSIUM CHLORIDE 20 MEQ TABLET PO PRN ×2 (09:43→12:11)
[2020-08-20] MEDS: FERROUS SULFATE 325 MG TABLET PO SCH (09:43)
[2020-08-20] MEDS: AMIODARONE 200 MG TABLET PO SCH ×2 (09:44→21:51)
[2020-08-20] MEDS: CITALOPRAM 40 MG TABLET PO SCH (09:44)
[2020-08-20] MEDS: APIXABAN 5 MG TABLET PO SCH ×2 (09:44→21:51)
[2020-08-20] MEDS: PANTOPRAZOLE 40 MG TABLET PO SCH (09:44)
[2020-08-20] MEDS: EZETIMIBE 10 MG TABLET PO SCH (09:44)
[2020-08-20] MEDS: METOPROLOL TARTRATE 25 MG TABLET PO SCH ×2 (09:44→21:57)
[2020-08-20] MEDS: ROSUVASTATIN 20 MG TABLET PO SCH (21:51)
[2020-08-21] MEDS: LEVALBUTEROL 1.25 MG/3 ML NEB RESP TX SCH ×3 (04:31→12:44)
[2020-08-21 06:08] LABS: Basophils # 0.1 10*3/uL (0.0-0.2); Basophils % 0.7 % (0.0-0.8); Eosinophils # 0.9 10*3/uL (0.0-0.87); Eosinophils % 5.4 % (0.00-10.9); Hematocrit 32.9 VOL% (35.7-47.0); Hemoglobin 10.5 GM/DL (12.0-16.0); Immature Granulocytes % 5.6 %; Immature Granulocytes Absolute 0.89 #; Lymphocytes # 3.4 10*3/uL (1.4-4.0); Lymphocytes % 21.3 % (21.3-54.2); Mean Corpuscular HGB Conc 31.9 GM/DL (32-36); Mean Corpuscular Volume 85.9 FL (87-102); Mean Platelet Volume 10.7 FL (9.6-12.0); Monocytes % 10.2 % (1.7-12.7); NRBC # 0.05 10*3/uL; Neutrophils % 56.8 % (38.7-73.9); Platelet Count 338 T/CUMM (130-400); Red Blood Count 3.83 MC/CUMM (3.8-5.5); Red Cell Distribution Width 14.6 % (9.3-17.3); White Blood Count 15.9 T/CUMM (4-12)
[2020-08-21 06:29] LABS: Calcium 8.6 MG/DL (8.5-10.1); Osmolality,Calculated 287.5 MOS/KG (273-304)
[2020-08-21 06:30] LABS: Eosinophils 2 % (0-10); Hypochromasia 1+; Lymphocytes 20 % (20-55); Microcytosis Slight; Nucleated Red Blood Cells 1 (0-5); Platelet Estimate Adequate; Segmented Neutrophils 69 % (50-85); Total Cells Counted 100
[2020-08-21] MEDS: DILTIAZEM CD 120 MG CAPSULE PO SCH (09:11)
[2020-08-21] MEDS: AMIODARONE 200 MG TABLET PO SCH (09:12)
[2020-08-21] MEDS: FERROUS SULFATE 325 MG TABLET PO SCH (09:12)
[2020-08-21] MEDS: CITALOPRAM 40 MG TABLET PO SCH (09:12)
[2020-08-21] MEDS: ASCORBIC ACID 500 MG TABLET PO SCH (09:12)
[2020-08-21] MEDS: EZETIMIBE 10 MG TABLET PO SCH (09:12)
[2020-08-21] MEDS: METOPROLOL TARTRATE 25 MG TABLET PO SCH (09:13)
[2020-08-21] MEDS: APIXABAN 5 MG TABLET PO SCH (09:13)
[2020-08-21] MEDS: PANTOPRAZOLE 40 MG TABLET PO SCH (09:13)
[2020-08-21] MEDS: INSULIN REGULAR 100 UNIT/ML SUBCUT SCH (09:14)
[2020-08-21] MEDS: DOCUSATE SODIUM 100 MG CAPSULE PO SCH (09:14)
[2020-08-21] MEDS: INSULIN GLARGINE 100 UNIT/ML SUBCUT SCH (09:14)
[2020-08-21 12:29] VITALS: BP 117/54
== END 2020-08-21 12:51 | disposition home or self-care (01) | DRG 233 ==
LOC: N.CL 06:14 → N.TELEN 07:54 → N.CVR 08-14 11:23 → N.TELES 08-15 17:45 → N.ICU 08-15 18:39 → N.TELES 08-18 13:14
PROVIDERS: ADMIT Internal Medicine Cardiovascular Disease; ATTEND Internal Medicine Cardiovascular Disease